=== PATIENT | male | born 1965 | race Caucasian/White ===

== ENCOUNTER → 2017-05-04 | Day surgery (SDC) | payer BC ==
[~2017-05-04] MED LIST: BUPIVACAINE HCL PF 0.75% 30 ML VIAL ONE; EPINEPHrine HCL (1:1000) 30 MG/30 ML VIAL ONE; LACTATED RINGER'S 1000 ML INJ 1,000 ML ONE; LIDOCAINE 1.5%/EPINEPHrine 1:200,000 PF SOLN 30 ML AMP ONE; MIDAZOLAM HCL 5 MG/ML VIAL (1 ML) ONE; PROPOFOL 500 MG/50 ML BTL IV ONE; ceFAZolin 2 GM PREMIX 50 ML ONE
--- NOTE | 2017-05-06 12:56 | MP ---
cc: ELINOR RUSSELL DATE OF SURGERY: 05/04/2017 PREOPERATIVE DIAGNOSES Right shoulder rotator cuff tear, right shoulder impingement syndrome, right shoulder labral tear, right shoulder chondromalacia. POSTOPERATIVE DIAGNOSES Right shoulder rotator cuff tear, right shoulder impingement syndrome, right shoulder labral tear, right shoulder chondromalacia. PROCEDURE Right shoulder arthroscopic rotator cuff repair, right shoulder arthroscopic subacromial decompression, right shoulder arthroscopic extensive debridement of labrum with chondroplasty glenohumeral joint. SURGEON Dr. Elinor Russell. [employer] EDWARD Reeder ANESTHESIA General with interscalene block. ESTIMATED BLOOD LOSS Less than 50 ccs. COMPLICATIONS None. IMPLANTS USED Arthrex. JUSTIFICATION The patient is a 51-year-old male who injured the right shoulder. He has had persistent pain, weakness in regards to his condition with failure of conservative treatment. Clinical exam as well as MRI confirmed the above-named findings. The patient was counseled as to the risks, benefits and alternatives to the above-named proposed surgical procedure and he did wish to proceed with surgery. PROCEDURE IN DETAIL A written consent was obtained. The patient was identified by name, taken to the operating room and placed supine on the operating table. General anesthesia was administered as well as 2 grams of IV Ancef. He did receive preoperative interscalene block. The patient was carefully turned to the left lateral decubitus position, lateral arm roll was placed, all bony prominences and pressure points were well padded. An arthroscopic arm rodriguez was gently applied to right upper extremity, 10 pounds of traction was placed. The right shoulder was prepped and draped using isopropyl alcohol, Hibiclens solution and DuraPrep solution. After time-out was performed a standard posterior and anterior glenohumeral arthroscopic portal was established. The glenohumeral joint revealed evidence of extensive labral tear involving the anterior, superior and posterior aspect. An arthroscopic shaver was introduced from anterior portal and extensive debridement of the labrum was performed from the 3 o'clock position up to the 12 o'clock position back down to the 9 o'clock position. There was evidence of chondromalacia along the superior aspect of the glenoid and a chondroplasty in this region was performed with an arthroscopic shaver. There was evidence of massive full-thickness rotator cuff tear as visualized from the glenohumeral joint which was debrided as well. Attention was turned the subacromial space where there was evidence of significant impingement with bursitis. An arthroscopic shaver was introduced from the lateral portal. A subacromial decompression was performed. The shaver was used to perform extensive bursectomy. An Arthrex 5 mm arthroscopic bur was used to perform an acromioplasty and the cautery device was used to release coracoacromial ligament. The bur was used to decorticate the greater tuberosity in preparation for rotator cuff tendon repair. Because of the U-shaped pattern tear of the supraspinatus tendon, Arthrex scorpion device was used to pass #2 FiberWire suture through the anterior and posterior limbs of the suture and a arthroscopic sliding knot was performed for a convergence repair. Subsequently an Arthrex scorpion device was used to shuttle number #2 fiber tape suture in a horizontal mattress pattern through the torn tendon. All four suture limbs to include the two FiberWire sutures and the two fiber tape sutures were placed through the eyelet of an Arthrex 4.75 mm bioabsorbable lock anchor. The sutures were tensioned and the anchor was inserted in the greater tuberosity with excellent purchase and fixation with insertion of the anchor and rotator cuff repair was probed and noted good stability and fixation. At the conclusion of the surgical procedure the arthroscopic portals were closed with 3-0 Prolene suture. Sterile dressing was applied. The patient tolerated the procedure well with no intraoperative complications noted. Trino Shook, physician purchasing administrative assistant certified was present during the entire procedure to include patient positioning, the procedure itself. The medical necessity of physician purchasing administrative assistant was indicated in this case due to the complexity of the procedure, he assisted with manipulation of arm and also manipulation of the camera, he assisted with shuttling of sutures and also implantation of suture anchor for purpose of rotator cuff tendon repair. MD NEYDA Burger/WINST[place] /1:47 PM /12:29 PM
== END | disposition home or self-care (01) ==
LOC: ESDC 11:12
PROVIDERS: ATTEND Orthopaedic Surgery Sports Medicine
DX: M75.121 Complete rotator cuff tear or rupture of right shoulder, not specified as traumatic (principal); M75.41 Impingement syndrome of right shoulder; M94.211 Chondromalacia, right shoulder; S43.491A Other sprain of right shoulder joint, initial encounter
CPT/HCPCS: 01630; 01991; 29823; 29826; 29827; 64417; C1713; J0171; J0690; J2250; J7120